=== PATIENT | female | born 1960 | race Caucasian/White ===

== ENCOUNTER → 2020-12-19 10:44 | Outpatient (CLI) | payer BC, SELFPAY ==
--- NOTE | ~2020-12-19 | MM_ITS ---
EXAMINATION: MM screening nuno BI w anni HISTORY: Screening TECHNIQUE: Craniocaudal and mediolateral oblique 3-D tomosynthesis images were obtained and synthetic 2-D images were generated. CAD analysis was submitted and interpreted. COMPARISON: No prior mammogram is available for comparison at this institution. BREAST PARENCHYMAL COMPOSITION: There are scattered areas of fibroglandular density. FINDINGS: There is no evidence of suspicious mass, calcification, or architectural distortion to sugg est malignancy in either breast. There has been no suspicious interval change. IMPRESSION: 1. No mammographic evidence of malignancy. 2. Recommend routine screening mammography in one year. BI-RADS Category 1: Negative Reviewed, dictated and finalized at location [facility].
== END ==
PROVIDERS: PCP Registered Nurse; Visit Provider Registered Nurse
DX: Z12.31 Encounter for screening mammogram for malignant neoplasm of breast (principal)
CPT/HCPCS: 77063; 77067

== ENCOUNTER 2021-02-09 02:25 | Day surgery (SDC) | payer BC, SELFPAY ==
[2021-01-28 14:06] VITALS: BMI 27.2
[2021-02-09 11:55] VITALS: BP 143/80; PULSE 89; RESP 20; TEMP 36.9; O2SAT 98; BMI 26.5
[2021-02-09] MEDS: LACTATED RINGERS 1,000 ML 150 ML IV CONT (12:04)
[2021-02-09 12:06] LABS: Glucose Point of Care 170 mg/dl (65-105)
--- NOTE | 2021-02-09 12:15 | WPDGICN ---
Assessment and Plan Assessment and plan (1) Chronic constipation: Code(s): K59.09 - Other constipation Status: Acute Assessment and Plan: Patient has a long history of chronic constipation. For this reason as well as for neoplasia screening a colonoscopy will be performed. Has been 10 years since last exam. Patient is advised to take fiber supplement such as Metamucil and in addition to take MiraLax 17g p.o. daily. If this is not fruitful then Linzess or other prescription laxative may be required. GI Consult Note Consult date/time: 02/09/21 12:15 HPI: Bronwyn Hollingsworth is a 60 year old female presents for screening colonoscopy. Patient reports a history of chronic constipation. She denies any bleeding. She does get abdominal pain. Typically her bowel habits will fluctuate between constipation and no bowel movement for 5 days and then she will subsequently have diarrhea. She reports over the years has had many different treatments including fiber supplements and dulcolax. With no improved symptoms. Most recently was advised to increase fiber and to take MiraLax. This appears to have had minimal improvement at present. Patient denies any weight loss or bleeding. Her family history is noncontributory. Patient reports having had a prior colonoscopy 10 years ago. She is uncertain but may have had colon polyps at 1 time. Her family history is noncontributory. Review of Systems Review of Systems: All systems reviewed & are unremarkable except as noted in HPI and below PMFSH Past Medical History Medical History (Updated 01/07/21 @ 13:03 by CHETAN Ceballos) Chronic constipation Diabetes mellitus HTN (hypertension) Social History Social History (Updated 01/07/21 @ 11:08 by Sammie Wolf MA) Smoking status: Former smoker Alcohol intake: current Alcohol use details: rarely Substance use: never Living arrangements: alone Gender identity (if verbalized by the patient): Female Agree to blood products: Yes Meds Home Medications and Allergies Home Medications Medication Instructions Recorded Confirmed Type apple cider vinegar 300 mg tablet mg PO 01/07/21 01/07/21 History atorvastatin 40 mg tablet 40 mg PO DAILY 01/07/21 01/28/21 History cholecalciferol (vitamin D3) 25 25 mcg PO DAILY 01/07/21 01/28/21 History mcg (1,000 unit) capsule glipizide 5 mg tablet 5 mg PO BID 01/07/21 01/28/21 History lisinopril 10 mg tablet 10 mg PO DAILY 01/07/21 01/28/21 History magnesium chloride 70 mg 70 mg PO DAILY 01/07/21 01/28/21 History (magnesium chloride) tablet,delayed release metformin 500 mg tablet 500 mg PO BID 01/07/21 01/28/21 History Allergies Allergy/AdvReac Type Severity Reaction Status Date / Time Sulfa (Sulfonamide Allergy Mild Unknown Verified 02/09/21 11:53 Antibiotics) nitrofurantoin Allergy Anaphylaxis Verified 02/09/21 11:53 [From Macrobid] Vital Signs Vital Signs - 24 hr 02/09/21 11:55 Temperature 98.5 F Pulse Rate 89 Respiratory Rate 20 Blood Pressure 143/80 H Pulse Oximetry 98 Exam Narrative: Physical exam reveals patient be alert. Vital signs stable. HEENT exam is unremarkable. Patient is anicteric. Lungs are clear to auscultation and percussion. Heart is without murmur or extra sounds. Abdomen bowel sounds are present soft nontender with no organomegaly. Digital external rectal exam is normal.
--- NOTE | 2021-02-09 12:29 | P.PNAN_ITS ---
Anes - Initial Pre Proc Eval Procedure: Operation Date: 02/09/21 13:00 Proposed Procedures p Colonoscopy - Eliu Syed MD Date/Time: 02/09/21 12:29 Surgeon: Eliu Syed MD Pre Op Diagnosis: constipation Patient Data Age: 60 Gender: F Height: 1.63 m Weight: 70.1 kg Last Vital Signs Temp 36.9 C 02/09/21 11:55 Pulse 89 02/09/21 11:55 Resp 20 02/09/21 11:55 BP 143/80 H 02/09/21 11:55 Pulse Ox 98 02/09/21 11:55 Allergies Allergy/AdvReac Type Severity Reaction Status Date / Time Sulfa (Sulfonamide Allergy Mild Unknown Verified 02/09/21 11:53 Antibiotics) nitrofurantoin Allergy Anaphylaxis Verified 02/09/21 11:53 [From Macrobid] Home Medications Medication Instructions Recorded Confirmed Type apple cider vinegar 300 mg tablet mg PO 01/07/21 01/07/21 History atorvastatin 40 mg tablet 40 mg PO DAILY 01/07/21 01/28/21 History cholecalciferol (vitamin D3) 25 25 mcg PO DAILY 01/07/21 01/28/21 History mcg (1,000 unit) capsule glipizide 5 mg tablet 5 mg PO BID 01/07/21 01/28/21 History lisinopril 10 mg tablet 10 mg PO DAILY 01/07/21 01/28/21 History magnesium chloride 70 mg 70 mg PO DAILY 01/07/21 01/28/21 History (magnesium chloride) tablet,delayed release metformin 500 mg tablet 500 mg PO BID 01/07/21 01/28/21 History Laboratory Tests 02/09/21 12:02 POC Capillary Glucose 170 mg/dl H mg/dl (65-105) Patient hx anesthesia problems: none Family hx anesthesia problems: none Results Review: All pre-operative results and documents have been reviewed as part of the pre-operative evaluation. [facility] Past Medical History Medical History Chronic constipation Diabetes mellitus HTN (hypertension) Surgical History Surgical History (Updated 02/09/21 @ 12:29 by Todd Lopez MD) H/O colonoscopy History of cholecystectomy Social History Social History Smoking status: Former smoker Alcohol intake: current Alcohol use details: rarely Substance use: never Living arrangements: alone Gender identity (if verbalized by the patient): Female Agree to blood products: Yes Anes - Eval Final PreProcedure Day of Procedure 02/09/21 12:29 Patient weight: overweight Heart: regular rate and rhythm Lungs: clear to auscultation Airway: Mallampati scale class II Neurological: alert and oriented Last oral intake: >/= 8 hours ASA classification: III Emergent: no Anesthetic plan: proceed Anesthesia type and monitoring: general GIVS and standard monitoring Results Review: All pre-operative results and documents have been reviewed as part of the pre-operative evaluation. Informed Consent: The patient's anesthetic plan and its attendant risks and benefits were discussed with the patient/family/POA. Questions were solicited a nd answers provided to the satisfaction of the patient/family/POA.
[2021-02-09 13:37] VITALS: BP 120/79; PULSE 77; RESP 13; O2SAT 100
[2021-02-09 13:47] VITALS: BP 155/90; PULSE 79; RESP 17; O2SAT 100
[2021-02-09 13:57] VITALS: BP 157/86; PULSE 72; RESP 13; O2SAT 100
== END 2021-02-09 14:12 | disposition home or self-care (01) ==
PROVIDERS: PCP Registered Nurse; Visit Provider Internal Medicine Gastroenterology
PROC: 0DJD8ZZ Inspection of Lower Intestinal Tract, Via Natural or Artificial Opening Endoscopic (ICD-10-PCS; CPT 45378; principal; 2021-02-09 13:00)
DX: K59.09 Other constipation (principal); K57.30 Diverticulosis of large intestine without perforation or abscess without bleeding; K64.8 Other hemorrhoids; E11.9 Type 2 diabetes mellitus without complications; I10 Essential (primary) hypertension
CPT/HCPCS: 45378; 82948; J2704; J7120

== ENCOUNTER → 2022-08-16 16:33 | Outpatient (CLI) | payer BC, SELFPAY ==
--- NOTE | ~2022-08-16 | MM_ITS ---
EXAMINATION: MM screening nuno BI w anni HISTORY: Screening mammogram TECHNIQUE: Craniocaudal and mediolateral oblique 3-D tomosynthesis images were obtained and synthetic 2-D images were generated. CAD analysis was submitted and interpreted. COMPARISON: 12/19/2020 bilateral screening mammogram BREAST PARENCHYMAL COMPOSITION: The breasts are heterogeneously dense, which may obscure small masses . FINDINGS: There is no evidence of suspicious mass, calcification, or architectural distortion to sugg est malignancy in either breast. There has been no suspicious interval change. IMPRESSION: 1. No mammographic evidence of malignancy. 2. Recommend routine screening mammography in one year. BI-RADS Category 1: Negative Reviewed, dictated and finalized at location A.
== END ==
PROVIDERS: PCP Registered Nurse; Visit Provider Registered Nurse
DX: Z12.31 Encounter for screening mammogram for malignant neoplasm of breast (principal)
CPT/HCPCS: 77063; 77067